=== PATIENT | male | born 1950 | race Caucasian/White ===

== ENCOUNTER 2024-05-10 19:21 | Inpatient (IN) | payer BC, MEDICARE, SELFPAY ==
[2024-05-10] VITALS (12 sets, daily range): BP systolic 119–162; BP diastolic 64–94; BMI 24.3; BMI 23.3
[2024-05-10 16:09] LABS: Glucose - Point of Care > 600 mg/dl (70-99)
[2024-05-10 16:37] LABS: Urine Albumin Negative (Neg - Trace); Urine Bilirubin Negative (Negative); Urine Character Clear (Clear); Urine Color Straw; Urine Glucose 3+ (Negative); Urine Ketone Negative (Negative); Urine Leukocyte Negative (Negative); Urine Nitrite Negative (Negative); Urine Occult Blood Trace (Negative); Urine Specific Gravity 1.005 (<1.030); Urine Urobilinogen Negative (Neg - 1+); Urine pH 6.5 (5.0-9.0)
[2024-05-10 16:37] LABS: % Basophils 0.3 % (0-2); % Eosinophils 0.6 % (0-6); % Immature Granulocytes 0.4 % (0-0.5); % Lymphocytes 22.8 % (20.5-51.1); % Monocytes 7.5 % (1.7-9.3); % Neutrophils 68.4 % (42.2-75.2); Absolute Lymphocytes 1.6 10^3/uL (1.2-3.4); Absolute Monocytes 0.5 10^3/uL (0.1-0.6); Absolute Neutrophils 4.9 10^3/uL (1.4-6.5); Hematocrit 33.4 % (39.0-52.0); Hemoglobin 11.9 g/dL (13.0-18.0); Mean Corp Hgb Conc. 35.6 g/dL (33.0-37.0); Mean Corpuscular Hgb 30.4 pg (27.0-31.0); Mean Corpuscular Volume 85.4 fL (80.0-94.0); Nucleated Red Blood Cells % 0 % (-); Platelet Count 177 10^3/uL (130-400); Red Blood Cell Count 3.91 10^6/uL (4.70-6.10); White Blood Cell Count 7.2 10^3/uL (4.8-10.8)
[2024-05-10 16:45] LABS: Urine Squamous Cell 0-2 /LPF (Few)
[2024-05-10 16:46] LABS: Urine Bacteria Few (Negative); Urine White Cell 0-2 /HPF (0-5)
[2024-05-10 16:51] LABS: ALT (SGPT) 51 U/L (0-50); AST (SGOT) 63 U/L (17-59); Albumin 4.4 g/dl (3.5-5.0); Alkaline Phosphatase 92 U/L (38-126); Blood Urea Nitrogen 19 mg/dl (9-20); Calcium 9.3 mg/dl (8.4-10.2); Carbon Dioxide 27 mmol/L (22-30); Chloride 93 mmol/L (98-107); Potassium 5.1 mmol/L (3.5-5.1); Sodium 132 mmol/L (135-145); Total Protein 7.3 g/dl (6.3-8.2); eGFR > 60.00
[2024-05-10 17:03] LABS: Glucose 725 mg/dl (70-99)
--- NOTE | 2024-05-10 17:23 | ED.GENMED ---
History of Present Illness
General
Chief Complaint: Abnormal Lab Value
Time Seen by Provider: 05/10/24 17:23
History of Present Illness
History of Present Illness:
HPI: Patient had outpatient blood work that showed a blood sugar in the 500s. He says this was ordered by Dr. Menjivar. He was told that he needs to follow with a primary care doctor but has not seen a primary care doctor in about 7 years. He is not
a diabetic but does have polyuria and polydipsia.
EXAM:
GENERAL: Well appearing in no distress
HEENT: Dry oral mucosa
CARDIOVASCULAR: No murmurs, normal heart rate, regular rhythm, No chest wall tenderness
PULMONARY: No respiratory distress, breath sounds are clear and equal
ABDOMEN: Soft with no peritoneal signs, no tenderness
NEUROLOGIC: Excellent strength all extremities, no coordination deficits
PSYCHIATRIC: Appropriate mental status, normal insight and judgement
EXTREMITIES: Nontender, no edema, moves all extremities equally
SKIN: No rash, no lesions
TIME OF INITIAL ENCOUNTER: 6 PM
NUMBER AND COMPLEXITY OF PROBLEMS ADDRESSED AT THE ENCOUNTER
� Chronic conditions affecting care: CAD, high blood pressure, hyperlipidemia, no prior history of diabetes
� Acute Exacerbation and/or Progression of Chronic Illness: This is an acute problem
� Differential Diagnosis includes: New onset diabetes, HHNK, DKA
AMOUNT AND/OR COMPLEXITY OF DATA TO BE REVIEWED AND ANALYZED
� I performed an independent evaluation of and my interpretation is:
EKG:
CT:
X-rays:
Laboratory Studies: Glucose 725, bicarb 27, white count 7.2, hemoglobin 11.9, A1c pending, no evidence of UTI but does have 3+ glucose and no ketones
Other:
� Review of other/old records: The patient was here in 2019 with a heel fracture
� Clinical information was obtained by an independent historian: I spoke to at bedside
� Prescriptions/Medications Considered but not given:
� Further testing considered but not performed:
RISK OF COMPLICATIONS AND/OR MORBIDITY OR MORTALITY OF PATIENT MANAGEMENT
� Social determinants of health affecting care: Lives at home
� Discussion with other providers:
� Escalation of care including admission/observation vs risk of discharge considered: Although patient prefers outpatient management, I cannot guarantee that he will be seen closely and I feel it will be most appropriate to keep
him here to more closely monitor the blood sugars and come up with a ongoing plan from a medication standpoint.
Past History
Past History
ED Past Medical History: None
ED Past Surgical History: None
Social History
Tobacco: Non-smoker
Alcohol: None
Drug: None
Personal:
Living: with family
Employment: Employed
Family History
Family History: CAD (in cousins, uncles, no 1st degree relative with CAD)
Phy Exam
Physical Exam
Physical Exam:
See HPI
Course
Orders/Labs/Results
Orders:
Orders
05/10/24 16:23
Complete Blood Count/With Diff Urgent
Comprehensive Metabolic Panel Urgent
Glycohemoglobin (HgbA1c) Urgent
Serum Osmolality Urgent
Comment: ADD ON
05/10/24 16:27
Urinalysis Reflex To Culture Urgent
Date Specimen was Collected: 05/10/24
Time Specimen was Collected: 16:09
Urine Microscopic Reflex Cult Urgent
05/10/24 17:23
0.9% Sodium Chloride 1000 ml [Nss] 1,000 ml IV BOLUS
05/10/24 18:06
Insulin Human Regular [Novolin R] 10 units IV NOW STA
05/10/24 18:12
Add On- LAB Urgent
Tests Added?: serum osm
05/10/24 18:35
Admit/Transfer Patient As Directed
Co-Sign Provider:
Level of Care: Inpatient admission
Assign to:: ICU
Physician / Group: bunny
Diagnosis: HHS
Reason for Hospitalization: HHS
Expected length of stay greater than two midnights?: Yes
ELOS- Estimated Length of Stay in days: 2
I certify the patient meets the requirements for IP care: Yes
PRN Pain Medication Management As Directed
May give lesser potent ordered pain med per pt: Yes
preference::
Protocol:: Medication orders for pain may be administered in a
manner that supports deferring to patient preference
when the pt is:
- Requesting an ordered lesser potent pain medication.
Least to most potent pain medications are defined
as: acetaminophen < NSAID < tramadol < opioids
(morphine, oxycodone, hydromorphone).
- Requesting a lesser dose of the same medication IF
ORDERED.
- Requesting a less intrusive route of administration
if both routes are prescribed by the provider (PO <
IV).
05/10/24 18:36
Code Status As Directed
Resuscitation Status: Full Code
05/10/24 18:45
Reg Insulin 100 Units/100 ml [Novolin R Insulin Infusion] 100 units in 100 ml IV ORDERED RATE
Abnormal Lab Results
05/10/24 05/10/24 05/10/24
16:07 16:23 16:27
RBC 3.91 L 10^6/uL
(4.70-6.10)
Hgb 11.9 L g/dL
(13.0-18.0)
Hct 33.4 L %
(39.0-52.0)
MPV 11.0 H fL
(7.4-10.4)
Sodium 132 L mmol/L
(135-145)
Chloride 93 L mmol/L
(98-107)
Glucose 725 H* mg/dl
(70-99)
AST 63 H U/L
(17-59)
ALT 51 H U/L
(0-50)
Ur Occult Blood Reflex Trace A
(Negative)
Urine RBC 3-6 A /HPF
(0-2)
Urine Bacteria (Reflex) Few A
(Negative)
Urine Glucose 3+ A
(Negative)
POC Glucose > 600 H* mg/dl
(70-99)
05/10/24 16:23
05/10/24 16:23
Vital Signs
Initial and Last Documented VS:
Initial Vital Signs
Temp Pulse Resp BP Pulse Ox
97.8 F 82 16 162/87 97
05/10/24 16:03 05/10/24 16:03 05/10/24 16:03 05/10/24 16:03 05/10/24 16:03
Last Documented Vital Signs
Temp Pulse Resp BP Pulse Ox
97.8 F 80 19 156/83 97
05/10/24 16:03 05/10/24 17:49 05/10/24 17:49 05/10/24 17:49 05/10/24 16:03
*Critical Care Note
Total Time (30-74mins, 75-104mins- exclusive of procedures): Not Applicable
ED Attending Note
-
Portions of this chart may have been created with voice recognition software.� Occasional wrong word or��sound alike� substitutions may have occurred due to the inherent limitations of voice recognition software.
Discharge Plan
Departure
Patient Disposition: Admit
Date of Disposition: 05/10/24
Time of Disposition: 18:16
Presentation/result/management discussed w/ accepting MD/DO: Hospitalist
Discharge Problem:
Severe hyperglycemia due to diabetes mellitus
Prescriptions:
No Action
acetaminophen [Tylenol Extra Strength] 500 MG tablet
500 mg PO Q4HPRN PRN (Reason: mild pain)
atorvastatin 80 MG tablet
80 mg PO QPM Qty: 30 3RF
nitroglycerin 0.4 MG tablet, sublingual
0.4 mg sublingual [id number] PRN (Reason: CHEST PAIN) Qty: 25 3RF
aspirin 81 MG tablet,chewable
81 mg PO DAILY 0RF
carvedilol 25 mg Tablet
25 mg PO BID
lisinopril 40 mg Tablet
40 mg PO DAILY
Interventions
Interventions:
*Risk Screen - Suicide Last Done: 05/10/24 16:03
*General Assessment Last Done: 05/10/24 18:32
*Neglect/Abuse Screening Last Done: 05/10/24 16:03
ED- Fall Risk Assessment Last Done: 05/10/24 18:32
*ED COVID-19 Vaccine History Last Done: 05/10/24 18:32
Discharge Date and Time
Print Language: BELIZEAN
[2024-05-10] MEDS: NSS 1000 IV (17:53)
--- NOTE | 2024-05-10 18:39 | HPS.HSE ---
Family Physician
-
Family Physician: Philomena Castro
Chief Complaint
-
polyuria, polydipsia
History of Present Illness
73-year-old male past medical history of CAD with stent, hyperlipidemia, presenting with outpatient blood work which showed blood sugar in the 500s. He has been having polyuria and polydipsia for the past several months. Denies abdominal pain,
nausea vomiting or diarrhea fevers or chills or any other complaints. Denies history of diabetes.
He has a cousin with diabetes.
Denies smoking or alcohol use.
Medical History
Past Medical History
Past Medical History: Reports Other (CAD with stent, hyperlipidemia)
Past Surgical History: Reports None
Social History
Tobacco: Non-smoker
Alcohol: None
Drug: None
Family History
Family History: Not pertinent
Allergies / Home Medications
Allergies reflects when Allergies were last updated in [facility].
Home Medications with original date entered in [facility]
Allergy/Medication List:
Allergies
Allergy/AdvReac Type Severity Reaction Status Date / Time
No Known Allergies Allergy Verified 05/10/24 16:05
Home Medications
acetaminophen 500 mg tablet (Tylenol Extra Strength) 500 mg PO Q4HPRN PRN mild pain 11/03/16
aspirin 81 mg chewable tablet 81 mg PO DAILY 11/07/16
atorvastatin 80 mg tablet 80 mg PO QPM ##30 11/07/16
nitroglycerin 0.4 mg sublingual tablet 0.4 mg sublingual [id number] PRN CHEST PAIN ##25 11/07/16
carvedilol 25 mg tablet 25 mg PO BID 05/10/24
lisinopril 40 mg tablet 40 mg PO DAILY 05/10/24
Review of Systems
-
History Source: Patient
A 12 point ROS was completed and negative except as noted: Yes
Constitutional: Reports No Symptoms
EENT: Reports No Symptoms
Respiratory: Reports No Symptoms
Cardiac: Reports No Symptoms
Abdomen/GI: Reports No Symptoms
: Reports No Symptoms
Musculoskeletal: Reports No Symptoms
Skin: Reports No Symptoms
Neurological: Reports No Symptoms
Endocrine: Reports No Symptoms
Hematologic/Lymphatic: Reports No Symptoms
Psych: Reports No Symptoms
Physical Exam
Vital Signs
Vital Signs
Temp Pulse Resp BP Pulse Ox
97.8 F 80 19 156/83 97
05/10/24 16:03 05/10/24 17:49 05/10/24 17:49 05/10/24 17:49 05/10/24 16:03
Physical Exam
General: Well Developed, Well Nourished and No Apparent Distress
HEENT: NormoCephalic, Moist mucous membranes and Atraumatic
Respiratory: Clear
Cardiac: S1/S2 and Regular Rhythm; No Murmur or Rub
GI: Soft, Non Tender, Non Distended and Normal Bowel Sounds; No Organomegaly
Rectal: Deferred by Provider
Musculoskeletal: No Clubbing, No Cyanosis and No Edema
Skin: No Rash
Neuro: Nonfocal/grossly intact
Laboratory Results
-
05/10/24 16:23
05/10/24 16:23
Laboratory Results
Total Bilirubin 1.0 mg/dl (0.2-1.3) 05/10/24 16:23
AST 63 U/L (17-59) H 05/10/24 16:23
ALT 51 U/L (0-50) H 05/10/24 16:23
Alkaline Phosphatase 92 U/L (38-126) 05/10/24 16:23
Data Reviewed
-
Lab Data: Labs Reviewed by me
Old Records: Reviewed
Impression/Plan
-
IMPRESSION:
PLAN:
# HHS
-Blood sugar 725
-Anion gap of 12
-Check A1c
-Accu-Cheks every hour
-BMP every 4 hours
-IV fluids with potassium at 150 cc/h
-N.p.o.
-Insulin drip
-Patient refusing to take subcutaneous insulin later
-UA pending
# Transaminitis
-Likely hepatic steatosis from diabetes
-Continue to monitor
CAD with history of stent
-Continue aspirin, Plavix, statin
-Continue Coreg
-Continue lisinopril
Hyperlipidemia
DNR
DVT prophylaxis�heparin
NPO
[2024-05-10 18:48] LABS: Osmolality Serum 312 mOsm/kg (275-300)
[2024-05-10 18:57] LABS: Glucose - Point of Care 552 mg/dl (70-99)
[2024-05-10] MEDS: NOVOLIN R 10 UNITS IV (19:00)
[2024-05-10] MEDS: NOVOLIN R INSULIN INFUSION 100 IV (19:01)
--- NOTE | 2024-05-10 20:30 | PTCARENOTE ---
pt received from ED to room 3360. Pt ambulated from stretcher to scale then to bed. Pt AAOx3. denies pain. NSR on telemetry heart rate in 60s. pulses palpable. no edema. pt on room air, sat 96%. lung sounds clear. active bowel sounds. voiding in
urinal without difficulty. insulin gtt infusing per protocol. new PIV placed in left AC. lab work drawn and sent. ekg obtained. admission questions completed. pt updated on plan of care. at bedside. see worklist for full nursing assessment and
interventions.
[2024-05-10 21:01] LABS: Glucose - Point of Care 330 mg/dl (70-99)
[2024-05-10 21:03] LABS: INR 1.03; PT 13.3 Sec (11.4-14.6)
[2024-05-10] MEDS: COREG 25 MG PO (21:07)
[2024-05-10] MEDS: NSS with KCL 20 MEQ 1000 IV (21:07)
[2024-05-10 21:08] LABS: Blood Urea Nitrogen 17 mg/dl (9-20); Calcium 9.1 mg/dl (8.4-10.2); Carbon Dioxide 24 mmol/L (22-30); Chloride 101 mmol/L (98-107); Estimated Creatinine Clearance 86 ml/min; Glucose 328 mg/dl (70-99); Magnesium 1.9 mg/dl (1.6-2.3); Phosphorus 2.9 mg/dl (2.5-4.5); Potassium 4.2 mmol/L (3.5-5.1); Sodium 137 mmol/L (135-145); eGFR > 60.00
[2024-05-10 22:16] LABS: Glucose - Point of Care 273 mg/dl (70-99)
[2024-05-10 23:13] LABS: Glucose - Point of Care 240 mg/dl (70-99)
[2024-05-11] VITALS (16 sets, daily range): BP systolic 98–143; BP diastolic 56–78; BMI 23.3
--- NOTE | 2024-05-11 | PTCARENOTE ---
pt resting in bed. q1 blood sugar checks, insulin gtt infusing per protocol. no changes in assessment noted.
[2024-05-11 00:18] LABS: Glucose - Point of Care 209 mg/dl (70-99)
[2024-05-11] MEDS: D5/0.45%NSS with KCL 20 MEQ 1000 IV ×2 (01:00→08:14)
[2024-05-11 01:07] LABS: Glucose - Point of Care 207 mg/dl (70-99)
[2024-05-11 01:18] LABS: Blood Urea Nitrogen 15 mg/dl (9-20); Calcium 8.8 mg/dl (8.4-10.2); Carbon Dioxide 24 mmol/L (22-30); Chloride 106 mmol/L (98-107); Estimated Creatinine Clearance 86 ml/min; Glucose 199 mg/dl (70-99); Potassium 3.8 mmol/L (3.5-5.1); Sodium 139 mmol/L (135-145); eGFR > 60.00
[2024-05-11 02:16] LABS: Glucose - Point of Care 209 mg/dl (70-99)
[2024-05-11 03:20] LABS: Glucose - Point of Care 248 mg/dl (70-99)
--- NOTE | 2024-05-11 04:00 | PTCARENOTE ---
pt slept intermittently throughout the night. no changes in assessment noted.
[2024-05-11 04:30] LABS: Glucose - Point of Care 228 mg/dl (70-99)
[2024-05-11 04:43] LABS: % Basophils 0.4 % (0-2); % Eosinophils 1.1 % (0-6); % Immature Granulocytes 0.2 % (0-0.5); % Lymphocytes 37.9 % (20.5-51.1); % Monocytes 9.4 % (1.7-9.3); Absolute Eosinophils 0.1 10^3/uL (0-0.7); Absolute Lymphocytes 2.1 10^3/uL (1.2-3.4); Absolute Monocytes 0.5 10^3/uL (0.1-0.6); Absolute Neutrophils 2.9 10^3/uL (1.4-6.5); Hematocrit 28.4 % (39.0-52.0); Hemoglobin 10.2 g/dL (13.0-18.0); Mean Corp Hgb Conc. 35.9 g/dL (33.0-37.0); Mean Corpuscular Hgb 31.3 pg (27.0-31.0); Mean Corpuscular Volume 87.1 fL (80.0-94.0); Nucleated Red Blood Cells % 0 % (-); Platelet Count 130 10^3/uL (130-400); Red Blood Cell Count 3.26 10^6/uL (4.70-6.10); Red Cell Dist. Width 12.9 % (11.5-14.5); White Blood Cell Count 5.7 10^3/uL (4.8-10.8)
[2024-05-11 04:58] LABS: Blood Urea Nitrogen 14 mg/dl (9-20); Calcium 8.6 mg/dl (8.4-10.2); Carbon Dioxide 25 mmol/L (22-30); Chloride 106 mmol/L (98-107); Estimated Creatinine Clearance 86 ml/min; Glucose 215 mg/dl (70-99); Magnesium 1.9 mg/dl (1.6-2.3); Phosphorus 3.2 mg/dl (2.5-4.5); Sodium 138 mmol/L (135-145); eGFR > 60.00
[2024-05-11 05:32] LABS: Glucose - Point of Care 196 mg/dl (70-99)
[2024-05-11 06:28] LABS: Glucose - Point of Care 238 mg/dl (70-99)
[2024-05-11 07:11] LABS: Glucose - Point of Care 255 mg/dl (70-99)
[2024-05-11 08:05] LABS: Glycohemoglobin (HgbA1c) 14.9 % (4.0-5.6)
[2024-05-11 08:12] LABS: Glucose - Point of Care 242 mg/dl (70-99)
[2024-05-11] MEDS: LOW STRENGTH ASPIRIN 81 MG PO (08:14)
[2024-05-11] MEDS: COREG 25 MG PO ×2 (08:14→20:22)
[2024-05-11] MEDS: ZESTRIL 40 MG PO (08:14)
[2024-05-11 08:36] LABS: Blood Urea Nitrogen 12 mg/dl (9-20); Calcium 8.6 mg/dl (8.4-10.2); Carbon Dioxide 24 mmol/L (22-30); Chloride 105 mmol/L (98-107); Estimated Creatinine Clearance 97 ml/min; Glucose 236 mg/dl (70-99); Potassium 4.3 mmol/L (3.5-5.1); Sodium 138 mmol/L (135-145); eGFR > 60.00
--- NOTE | 2024-05-11 08:55 | W.PN.HOSP.TC ---
Today's Communication/Plan
-
DRYING ROOM SUPERVISOR DM consult
dietary consult
transition off insulin drip
Assessment / Plan
Assessment / Plan
pt is a 73 year old male
new onset type 2 DM presenting as HHS (blood sugar 725 on admission--no AGAP)--HGB A1C 14.9--on insulin drip with sugars in 200s--consult DM DRYING ROOM SUPERVISOR for transition--will likely NEED insulin but pt currently refusion--needs dietary consult too
Transaminitis--Likely hepatic steatosis from diabetes--Continue to monitor
CAD with history of stent--Continue aspirin, Plavix, statin--Continue Coreg--Continue lisinopril
Hyperlipidemia--cont lipitor
code status --DNR
DVT prophylaxis�heparin
once off insulin drip can transfer out of ICU
Anticipated Discharge: 24 - 48 hours
Subjective/Interval History
-
Date of Service: May 11, 2024
no c/o this AM
been having polydipsia, polyuria for awhile--no FM of DM
Objective Data
-
Labs:
Laboratory Results
05/10/24 05/11/24 05/11/24
20:45 00:56 04:18
WBC 5.7
Hgb 10.2 L
Hct 28.4 L
Plt Count 130 D
PT 13.3
INR 1.03
APTT 28.0
Sodium 137 139 138
Potassium 4.2 3.8 4.0
Chloride 101 106 106
Carbon Dioxide
BUN 17 15 14
Creatinine 0.9 0.9 0.9
Glucose 328 H 199 H 215 H
Calcium 9.1 8.8 8.6
05/11/24 05/11/24 05/11/24
08:00 12:00 16:00
WBC
Hgb
Hct
Plt Count
PT
INR
APTT
Sodium 138 Pending Pending
Potassium 4.3 Pending Pending
Chloride 105 Pending Pending
Carbon Dioxide 24 Pending Pending
BUN 12 Pending Pending
Creatinine 0.8 Pending Pending
Glucose 236 H Pending Pending
Calcium 8.6 Pending Pending
05/11/24
20:00
WBC
Hgb
Hct
Plt Count
PT
INR
APTT
Sodium Pending
Potassium Pending
Chloride Pending
Carbon Dioxide Pending
BUN Pending
Creatinine Pending
Glucose Pending
Calcium Pending
Vital Signs:
max temp for 24 hours
05/11/24
00:00
Temp 98.3 F
Vital Signs
Temp Pulse Resp BP Pulse Ox
98.2 F 67 15 142/78 96
05/11/24 08:00 05/11/24 08:14 05/11/24 07:00 05/11/24 08:14 05/11/24 07:00
I&O
05/10/24 05/11/24 05/12/24
06:59 06:59 06:59
Intake Total 1532 / 1686 154 / 154
Output Total 500 / 500 200 / 200
Balance 1032 / 1186 -46 / -46
Review of Systems
-
All other systems: Reviewed and negative
Physical Exam
-
General: Well Developed, Well Nourished and No Apparent Distress
HEENT: Normocephalic and Atraumatic
Respiratory: Clear to Auscultation; Negative Wheezes or Rhonchi
Cardiac: Regular Rhythm and S1/S2; Negative Murmur
GI: Soft, Nontender, Nondistended and Normal Bowel Sounds
Musculoskeletal: No Clubbing, No Cyanosis and No Edema
Neuro: Awake and Alert
Psych: Calm
--- NOTE | 2024-05-11 08:59 | CM ---
Patient seen at bedside with physician. Patient lives with in one story home. Patient independent of ADL's and IADL's. Patient states that he has no DME at home. Patient PCP is Dr. Smith and he uses the [facility] in [place]. Patient expressed
concerns about diet moving forward with new Diagnosis of DM. CM will continue to follow for discharge planning needs.
Plan; home with no needs; follow up with PCP
[2024-05-11 09:13] LABS: Glucose - Point of Care 258 mg/dl (70-99)
--- NOTE | 2024-05-11 09:40 | PTCARENOTE ---
Assumed care of patient this morning. Insulin gtt maintained with Q1H blood sugars. 0800 BMP sent this morning and reviewed by . Toy Assembler consulted. Patient is aaox3 but flat, does not offer much conversation when prompted. Pt
denies any pain. Has no complaints at this time. Assessment, care and VS as charted.
[2024-05-11 10:11] LABS: Glucose - Point of Care 263 mg/dl (70-99)
[2024-05-11] MEDS: LANTUS 0.18 UNITS SC (11:06)
[2024-05-11] MEDS: GLUCOPHAGE 500 MG PO ×2 (11:06→18:10)
[2024-05-11 11:17] LABS: Glucose - Point of Care 255 mg/dl (70-99)
--- NOTE | 2024-05-11 11:35 | CON.INTV ---
Consultation
Consultation Request
Date/Time Consultation Requested: 05/11/2024
Date/Time Consultation Performed: 05/11/2024
Requesting Provider: Dr. Evangelista
Performing Provider: Dr. Bam Kim
Reason for Consultation: Anion gap metabolic acidosis/hyperglycemia crisis
Medical History
-
History of Present Illness:
73-year-old man with past medical history significant for coronary artery disease with stents placement in the past, hyperlipidemia who presented from the outpatient setting with blood sugars in the 500s. He reports polyuria, polydipsia, weight
loss for several months. New diagnosis of diabetes.
Denies nausea, vomiting, abdominal pain, shortness of breath, headache or blurry vision. Denies any chest pain.
Denies signs or symptoms suggestive of infection.
He is reluctant to use insulin
Past Medical History
Past Medical History: Other (See assessment and plan)
Social History
Tobacco: Non-smoker
Alcohol: None
Drug: None
Family History
Family History: Reviewed & Not Pertinent
Allergies / Home Medications
Allergies
Allergy/AdvReac Type Severity Reaction Status Date / Time
No Known Allergies Allergy Verified 05/10/24 16:05
Home Medications
�Medication �Instructions �Recorded �Confirmed �Last Taken �Type
acetaminophen 500 mg tablet 500 mg PO Q4HPRN PRN mild pain 11/03/16 05/10/24 11/03/16 11:30 History
(Tylenol Extra Strength)
aspirin 81 mg chewable tablet 81 mg PO DAILY 11/07/16 05/10/24 Unknown Rx
atorvastatin 80 mg tablet 80 mg PO QPM ##30 11/07/16 05/10/24 Unknown Rx
nitroglycerin 0.4 mg sublingual 0.4 mg sublingual [id number] PRN 11/07/16 05/10/24 Unknown Rx
tablet CHEST PAIN ##25
carvedilol 25 mg tablet 25 mg PO BID Heart 05/10/24 05/10/24 Unknown History
Disease/Condition
lisinopril 40 mg tablet 40 mg PO DAILY Heart 05/10/24 05/10/24 Unknown History
Disease/Condition
Review of Systems
-
History Source: Patient
All other systems: Negative unless noted
Vitals / Labs / Diagnostic Testing
Vital Signs
Temp Pulse Resp BP Pulse Ox
98.2 F 66 13 133/69 96
05/11/24 08:00 05/11/24 11:00 05/11/24 11:00 05/11/24 11:00 05/11/24 11:00
Lab Data
05/11/24 04:18
05/11/24 20:00
Laboratory Results
05/10/24
20:45
PT 13.3
INR 1.03
APTT 28.0
Diagnostic Testing:
Physical Exam
-
HEENT: Normocephalic
Cardiovascular: S1/S2
Respiratory: Clear and Non-Labored Respirations
GI: Soft, Non Distended and Normal Bowel Sounds
Neurology: Awake, Alert, AO x 3 and No Motor Deficits
Skin: Warm
General: Comfortable
Assessment
-
73-year-old man admitted with a blood sugar of the 700s, weight loss, polyuria, polydipsia and new onset diabetes. Hyperosmolar syndrome due to hyperglycemia. In the critical care unit with insulin drip.
Hyperglycemic hyperosmolar nonketotic syndrome.
Blood sugar 725 in the emergency room
New onset diabetes mellitus-hemoglobin A1c 14.9
Transaminitis-likely hepatic steatosis
Anemia
Conditions present prior admission: Coronary artery disease
Post stents
Hyperlipidemia
Hypertension
Chest x-ray 05/11/2024: Reviewed showed clear lungs.
Urinalysis-unremarkable
Assessment and plan:
Critically ill on admission, on insulin drip. Hourly Accu-Cheks. Target blood sugars 140-180
Patient denies any particular symptoms at the moment.
He states that he was told in the past that he has some high sugars.
Blood sugar control improved
Status post IV fluid resuscitation, continue to follow renal function and electrolytes.
Encourage oral intake
Diabetes nurse practitioner saw the patient, discussed. To be transition to subcu insulin.
Dietitian consultation to instruct on diabetic diet
-
Coronary artery disease: Chest pain-free.
Denies shortness of breath.
Restart outpatient medications
-
DVT prophylaxis: Patient refused subcu heparin, start SCDs. Early mobilization
He is reluctant to use injectable medication
-
Critical care statement: A total of 31 minutes of critical care time was provided for this patient today. This includes management of unstable vital signs, evaluation of the patient at bedside, reviewing the patient's pertinent medical records
including radiographs, microbiology, laboratory evaluations and discussion with primary team, critical care nursing, and respiratory therapy.
--- NOTE | 2024-05-11 11:46 | PTCARENOTE ---
Lantus given, see MAR. Insulin gtt and IVF will be removed approx 1300. Pt also advised to have lunch at this time.
[2024-05-11 12:11] LABS: Glucose - Point of Care 269 mg/dl (70-99)
[2024-05-11 13:09] LABS: Glucose - Point of Care 252 mg/dl (70-99)
[2024-05-11] MEDS: NOVOLOG FLEXPEN 5 UNITS SC ×2 (13:16→18:10)
[2024-05-11] MEDS: NOVOLOG FLEXPEN-LOW RESISTANCE 3 UNITS SC (13:16)
--- NOTE | 2024-05-11 13:31 | W.PN.UPDATE ---
Update Note
Progress Note Update
Off insulin drip
Tolerating diet
On subcu insulin
Will transfer to [facility]
Critical care team will sign off.
Please call pulmonary if any respiratory issues arise
--- NOTE | 2024-05-11 13:42 | PN.DE.MGMTRT ---
Insulin Management
- -
05/11/2024 Diabetes Management Consult
Patient admitted 05/10 abnormal lab value, BS 725 found to be in DKA. H CAD, stent, HLD. Patient has not been to the doctor in quite some time. A1C 14.9%, cr .8, eGFR > 60.
Patient is awake alert and oriented. Discussed with patient importance of glucose control and need for insulin. He is reluctant but agreeable. Will start 18 units lantus daily with 5 units novolog AC and low corrective with metformin 500 mg BID.
Provided meter will return to instruct
Did instruct patient on steps for taking insulin. Nursing to reinforce and have patient do all injections with nursing supervision.
Will follow
Diabetes History
- -
Type of Diabetes: 2 requiring insulin
Pre-Admission Diabetes Regimen
05/10/24 05/10/24 05/11/24
16:23 20:45 00:56
Creatinine 1.1 0.9 0.9
05/11/24 05/11/24 05/11/24
04:18 08:00 12:00
Creatinine 0.9 0.8 Cancelled
05/11/24 05/11/24
16:00 20:00
Creatinine Cancelled Cancelled
Lab Results
Hemoglobin A1c 14.9 % (4.0-5.6) H 05/10/24 16:23
Insulin Pump Settings
IP Diabetes Regimen
05/10/24 05/10/24 05/10/24
16:07 16:23 18:55
Glucose 725 H*
POC Glucose > 600 H* 552 H*
05/10/24 05/10/24 05/10/24
20:45 20:50 22:05
Glucose 328 H
POC Glucose 330 H 273 H
05/10/24 05/11/24 05/11/24
23:02 00:05 00:55
Glucose
POC Glucose 240 H 209 H 207 H
05/11/24 05/11/24 05/11/24
00:56 02:05 03:08
Glucose 199 H
POC Glucose 209 H 248 H
05/11/24 05/11/24 05/11/24
04:18 05:20 06:17
Glucose 215 H
POC Glucose 228 H 196 H 238 H
05/11/24 05/11/24 05/11/24
07:00 07:59 08:00
Glucose 236 H
POC Glucose 255 H 242 H
05/11/24 05/11/24 05/11/24
09:02 09:59 11:05
Glucose
POC Glucose 258 H 263 H 255 H
05/11/24 05/11/24 05/11/24
12:00 12:58 16:00
Glucose Cancelled Cancelled
POC Glucose 269 H 252 H
05/11/24
20:00
Glucose Cancelled
POC Glucose
Patient Education
--- NOTE | 2024-05-11 16:49 | PTCARENOTE ---
Transferred from ICU. AOx3. VSS. Assessment unchanged from previous RN. Discussed plan of care. Encouraged to make needs known.
[2024-05-11 17:32] LABS: Glucose - Point of Care 159 mg/dl (70-99)
[2024-05-11] MEDS: NOVOLOG FLEXPEN-LOW RESISTANCE 1 UNITS SC (18:10)
[2024-05-11] MEDS: LIPITOR 80 MG PO (18:10)
[2024-05-11 19:59] LABS: Glucose - Point of Care 199 mg/dl (70-99)
[2024-05-11 21:26] LABS: Glucose - Point of Care 177 mg/dl (70-99)
[2024-05-12 00:02] VITALS: BP 114/58
[2024-05-12 02:29] LABS: Glucose - Point of Care 205 mg/dl (70-99)
[2024-05-12 06:00] VITALS: BMI 23.2
[2024-05-12 07:30] VITALS: BP 119/62
[2024-05-12 07:56] LABS: Hematocrit 32.1 % (39.0-52.0); Hemoglobin 11.4 g/dL (13.0-18.0); Mean Corp Hgb Conc. 35.5 g/dL (33.0-37.0); Mean Corpuscular Hgb 30.2 pg (27.0-31.0); Mean Corpuscular Volume 84.9 fL (80.0-94.0); Mean Platelet Volume 10.8 fL (7.4-10.4); Platelet Count 150 10^3/uL (130-400); Red Blood Cell Count 3.78 10^6/uL (4.70-6.10); Red Cell Dist. Width 13.2 % (11.5-14.5); White Blood Cell Count 5.7 10^3/uL (4.8-10.8)
[2024-05-12 08:25] LABS: Glucose - Point of Care 257 mg/dl (70-99)
--- NOTE | 2024-05-12 08:46 | PN.DE.MGMTRT ---
Insulin Management
- -
05/12/2024 Diabetes Management Consult Follow up
Patient admitted 05/10 abnormal lab value, BS 725 found to be in DKA. H CAD, stent, HLD. Patient has not been to the doctor in quite some time. A1C 14.9%, cr .8, eGFR > 60.
Patient is awake alert and oriented, resting in bed, at bedside. Discussed with patient importance of glucose control and need for insulin. He was reluctant but agreeable. 05/11 18 units lantus daily with 5 units novolog AC and low corrective
with metformin 500 mg BID started 05/11. Glucose range 159 to 205.
05/12 Fasting glucose 257. Will increase AM lantus to 20 units and Novolog to 8 units AC with low corrective and continue metformin 500 mg BID.
Provided meter and instructed
Did instruct patient on steps for taking insulin. Nursing to reinforce and have patient do all injections with nursing supervision. Home pen needles provided
Will follow
Diabetes History
- -
Type of Diabetes: 2 requiring insulin
Pre-Admission Diabetes Regimen
05/11/24 05/11/24 05/11/24
12:00 16:00 20:00
Creatinine Cancelled Cancelled Cancelled
Lab Results
Hemoglobin A1c 14.9 % (4.0-5.6) H 05/10/24 16:23
Insulin Pump Settings
IP Diabetes Regimen
05/11/24 05/11/24 05/11/24
09:02 09:59 11:05
Glucose
POC Glucose 258 H 263 H 255 H
05/11/24 05/11/24 05/11/24
12:00 12:58 16:00
Glucose Cancelled Cancelled
POC Glucose 269 H 252 H
05/11/24 05/11/24 05/11/24
17:31 19:57 20:00
Glucose Cancelled
POC Glucose 159 H 199 H
05/11/24 05/12/2405/12/24
21:25 02:27 08:24
Glucose
POC Glucose 177 H 205 H 257 H
Patient Education
[2024-05-12] MEDS: COREG 25 MG PO ×2 (08:53→20:45)
[2024-05-12] MEDS: ZESTRIL 40 MG PO (08:54)
[2024-05-12] MEDS: LOW STRENGTH ASPIRIN 81 MG PO (08:54)
[2024-05-12] MEDS: GLUCOPHAGE 500 MG PO ×2 (08:58→17:31)
[2024-05-12] MEDS: NOVOLOG FLEXPEN SC ×2 (09:04→13:49)
[2024-05-12] MEDS: LANTUS SC (09:04)
[2024-05-12 09:46] LABS: ALT (SGPT) 46 U/L (0-50); AST (SGOT) 58 U/L (17-59); Albumin 3.7 g/dl (3.5-5.0); Alkaline Phosphatase 69 U/L (38-126); Blood Urea Nitrogen 10 mg/dl (9-20); Calcium 9.2 mg/dl (8.4-10.2); Carbon Dioxide 18 mmol/L (22-30); Chloride 106 mmol/L (98-107); Estimated Creatinine Clearance 97 ml/min; Glucose 247 mg/dl (70-99); Magnesium 1.9 mg/dl (1.6-2.3); Potassium 4.4 mmol/L (3.5-5.1); Sodium 138 mmol/L (135-145); Total Protein 6.6 g/dl (6.3-8.2); eGFR > 60.00
[2024-05-12] MEDS: LANTUS 0.2 UNITS SC (10:31)
[2024-05-12] MEDS: NOVOLOG FLEXPEN 6 UNITS SC (10:32)
[2024-05-12] MEDS: NOVOLOG FLEXPEN-LOW RESISTANCE 3 UNITS SC (10:33)
[2024-05-12 12:22] LABS: Glucose - Point of Care 323 mg/dl (70-99)
--- NOTE | 2024-05-12 13:25 | CM ---
Patient seen at bedside with physician and resident. Patient also present. Patient for discharge home tomorrow with [facility] follow up. referral sent via all scripts. Patient accepting of referral. IMM completed and signed form placed on chart.
CM will continue to follow for discharge planning needs.
Plan; home with [facility] to follow up.
[2024-05-12] MEDS: NOVOLOG FLEXPEN 8 UNITS SC ×2 (13:42→17:29)
[2024-05-12] MEDS: NOVOLOG FLEXPEN-LOW RESISTANCE 4 UNITS SC (13:43)
[2024-05-12 15:45] VITALS: BP 91/60
[2024-05-12 16:45] VITALS: BP 119/68
[2024-05-12 16:48] LABS: Glucose - Point of Care 199 mg/dl (70-99)
[2024-05-12] MEDS: NOVOLOG FLEXPEN-LOW RESISTANCE 1 UNITS SC (17:29)
[2024-05-12] MEDS: LIPITOR 80 MG PO (17:31)
--- NOTE | 2024-05-12 18:36 | W.PN.HOSP.TC ---
Today's Communication/Plan
-
learning insulin pens
hopeful d/c in AM
Assessment / Plan
Assessment / Plan
pt is a 73 year old male
new onset type 2 DM presenting as HHS (blood sugar 725 on admission--no AGAP)--HGB A1C 14.9--off insulin drip with sugars in 200s--apprec DM WEALTH MANAGEMENT CONSULTANT for transition, now on lantus and novolog with meals--apprec dietary consult
Transaminitis--Likely hepatic steatosis from diabetes--Continue to monitor
CAD with history of stent--Continue aspirin, Plavix, statin--Continue Coreg--Continue lisinopril
Hyperlipidemia--cont lipitor
code status --DNR
DVT prophylaxis�heparin
hopeful d/c tomorrow
Anticipated Discharge: Within 24 hours
Subjective/Interval History
-
Date of Service: May 12, 2024
pt learning how to use his insulin pens
Objective Data
-
Labs:
Laboratory Results
05/12/24
07:36
WBC 5.7
Hgb 11.4 L
Hct 32.1 L
Plt Count 150
Sodium 138
Potassium 4.4
Chloride 106
Carbon Dioxide 18 L
BUN 10
Creatinine 0.8
Glucose 247 H
Calcium 9.2
Total Bilirubin 1.0
AST 58
ALT 46
Alkaline Phosphatase 69
Vital Signs:
max temp for 24 hours
05/12/24
15:45
Temp 98.4 F
Vital Signs
Temp Pulse Resp BP Pulse Ox
98.4 F 79 16 119/68 97
05/12/24 15:45 05/12/24 16:45 05/12/24 15:45 05/12/24 16:45 05/12/24 15:45
I&O
05/11/24 05/12/24 05/13/24
06:59 06:59 06:59
Intake Total 1532 / 1686 1897 / 1897
Output Total 500 / 500 1000 / 1000
Balance 1032 / 1186 897 / 897
Review of Systems
-
All other systems: Reviewed and negative
Physical Exam
-
General: Well Developed, Well Nourished and No Apparent Distress
HEENT: Normocephalic and Atraumatic
Respiratory: Clear to Auscultation; Negative Wheezes or Rhonchi
Cardiac: Regular Rhythm and S1/S2; Negative Murmur
GI: Soft, Nontender, Nondistended and Normal Bowel Sounds
Musculoskeletal: No Clubbing, No Cyanosis and No Edema
Neuro: Awake and Alert
Psych: Calm
[2024-05-12 22:29] LABS: Glucose - Point of Care 197 mg/dl (70-99)
[2024-05-12 23:40] VITALS: BP 121/68
--- NOTE | 2024-05-13 06:16 | W.PN.UPDATE ---
Update Note
Progress Note Update
Reported by the nursing staff that the patient is DNR and his code status ordered as full code. Spoke to the patient and he verbalized the meaning of DNR and confirmed that his code status is DNR. Code changed per the patient request.
[2024-05-13 07:31] LABS: Glucose - Point of Care 207 mg/dl (70-99)
[2024-05-13 07:44] VITALS: BP 140/67
[2024-05-13] MEDS: ZESTRIL 40 MG PO (07:51)
[2024-05-13] MEDS: GLUCOPHAGE 500 MG PO ×2 (07:51→17:03)
[2024-05-13] MEDS: COREG 25 MG PO (07:52)
[2024-05-13] MEDS: LOW STRENGTH ASPIRIN 81 MG PO (07:52)
--- NOTE | 2024-05-13 07:52 | PN.DE.MGMTRT ---
Insulin Management
- -
05/13/2024 Diabetes Management Consult Follow up
Patient admitted 05/10 abnormal lab value, BS 725 found to be in DKA. H CAD, stent, HLD. Patient has not been to the doctor in quite some time. A1C 14.9%, cr .8, eGFR > 60.
Patient is awake alert and oriented, resting in bed, at bedside. Discussed with patient importance of glucose control and need for insulin. He was reluctant but agreeable. 05/11 18 units lantus daily with 5 units novolog AC and low corrective
with metformin 500 mg BID started 05/11. Glucose range 159 to 205.
05/12 AM lantus increased to 20 units and Novolog to 8 units AC with low corrective and continue metformin 500 mg BID. Glucose improved to 199 pre dinner and 197 @ HS.
05/13 Fasting glucose 207, will increase AM lantus to 22 units and AC novolog to 10 units.
Provided meter and instructed good return demonstration. Able to state times to test and importance of reporting results to doctor.
Did instruct patient on steps for taking insulin. Nursing to reinforce and have patient do all injections with nursing supervision. Patient states he is comfortable self injecting. Home pen needles provided
Discussed with CM preferred insulins are Fiasp and Basaglar
Will follow
Diabetes History
- -
Type of Diabetes: 2 requiring insulin
Pre-Admission Diabetes Regimen
05/12/24
07:36
Creatinine 0.8
Lab Results
Hemoglobin A1c 14.9 % (4.0-5.6) H 05/10/24 16:23
Insulin Pump Settings
IP Diabetes Regimen
05/12/24 05/12/24 05/12/24
07:36 08:24 12:21
Glucose 247 H
POC Glucose 257 H 323 H
05/12/24 05/12/24 05/13/24
16:47 22:27 07:29
Glucose
POC Glucose 199 H 197 H 207 H
Patient Education
[2024-05-13] MEDS: LANTUS 0.2 UNITS SC (07:54)
[2024-05-13] MEDS: NOVOLOG FLEXPEN SC ×2 (07:55→08:04)
[2024-05-13] MEDS: NOVOLOG FLEXPEN-LOW RESISTANCE 2 UNITS SC ×2 (07:56→13:43)
[2024-05-13] MEDS: NOVOLOG FLEXPEN 10 UNITS SC ×3 (08:02→17:05)
[2024-05-13] MEDS: LANTUS 0.02 UNITS SC (08:42)
[2024-05-13 12:05] LABS: Glucose - Point of Care 235 mg/dl (70-99)
--- NOTE | 2024-05-13 13:35 | CM ---
Addendum entered by Valery Hernandez 05/13/24 14:47:
no copays for either medication. patient updated and patient to be followed by Anjali. CM will continue to follow for discharge.
Original Note:
CM called to insurance to determine cost of medications, with id number [phone] . CM unable to obtain information called to [facility] and had to leave message. patient for discharge today. CM will continue to try to obtain information about costs. CM
will continue to follow for discharge planning needs.
Plan; home with family follow up with PCP
--- NOTE | 2024-05-13 14:12 | PTCARENOTE ---
patient denies complaints, tolerating diet, no BM, independent in room, vss. He is able to administer insulin but needs reminder to hold insulin pen in skin for at least 10 seconds for insulin to be fully dispensed and absorbed. will continue to
monitor.
[2024-05-13 15:22] VITALS: BP 124/69
[2024-05-13 16:19] LABS: Glucose - Point of Care 251 mg/dl (70-99)
[2024-05-13] MEDS: LIPITOR 80 MG PO (17:03)
[2024-05-13] MEDS: NOVOLOG FLEXPEN-LOW RESISTANCE 3 UNITS SC (17:04)
--- NOTE | 2024-05-13 17:17 | W.PN.HOSP.TC ---
Today's Communication/Plan
-
d/c
Assessment / Plan
Assessment / Plan
pt is a 73 year old male
new onset type 2 DM presenting as HHS (blood sugar 725 on admission--no AGAP)--HGB A1C 14.9--off insulin drip with sugars in 200s--apprec DM MILITARY ADMINISTRATIVE TECHNICIAN for transition, now on lantus and novolog with meals--apprec dietary consult
Transaminitis--Likely hepatic steatosis from diabetes--Continue to monitor
CAD with history of stent--Continue aspirin, Plavix, statin--Continue Coreg--Continue lisinopril
Hyperlipidemia--cont lipitor
code status --DNR
DVT prophylaxis�heparin
d/c
Anticipated Discharge: Today
Subjective/Interval History
-
Date of Service: May 13, 2024
pt ready for d/c
Objective Data
-
Vital Signs:
max temp for 24 hours
05/12/24
15:45
Temp 98.4 F
Vital Signs
Temp Pulse Resp BP Pulse Ox
98.1 F 76 17 140/67 97
05/13/24 07:44 05/13/24 07:44 05/13/24 07:44 05/13/24 07:44 05/13/24 07:44
I&O
05/12/24 05/13/24 05/14/24
06:59 06:59 06:59
Intake Total 1897 / 1897 1580 / 1580 360 / 360
Output Total 1000 / 1000
Balance 897 / 897 1580 / 1580 360 / 360
Review of Systems
-
All other systems: Reviewed and negative
Physical Exam
-
General: Well Developed, Well Nourished and No Apparent Distress
HEENT: Normocephalic and Atraumatic
Respiratory: Clear to Auscultation; Negative Wheezes or Rhonchi
Cardiac: Regular Rhythm and S1/S2; Negative Murmur
GI: Soft, Nontender, Nondistended and Normal Bowel Sounds
Musculoskeletal: No Clubbing, No Cyanosis and No Edema
Neuro: Awake and Alert
--- NOTE | 2024-05-13 18:41 | PTCARENOTE ---
patient sent with Novolog Pen and Lantus insulin approved by pharmacy to be able to go home since his pharmacy won't have insulin until tomorrow at 3pm.
--- NOTE | 2024-05-14 06:22 | W.DCSUMMARY ---
Discharge Summary
Discharge Data
Date of Admission: 05/10/24
Date of Discharge: 05/13/24
-
Pending Results: No
Hospital Course
Primary care physician : Philomena Castro
Principal Discharge diagnosis : New onset type 2 diabetes mellitus presenting as hyperosmolar hyperglycemic state
Chronic Discharge diagnosis : Coronary artery disease with history of stent, hyperlipidemia
Hospital Course : Patient was a 73-year-old male with a history of coronary artery disease with stent placement, hyperlipidemia who presented with outpatient blood work which showed blood sugar in the 500s. For several months he stated he was
having polyuria and polydipsia. He denied abdominal pain, nausea, vomiting, diarrhea, fevers, or chills. He denies any personal history of diabetes. Patient was found to have a blood sugar 725 on evaluation in the emergency department. He was
admitted.
Problem #1: New onset type 2 diabetes mellitus presenting as hyperosmolar hyperglycemic state. Patient was initially admitted to the intensive care unit and started on an insulin drip. He did not present in diabetic ketoacidosis as his bicarbonate
was normal on his serum BMP laboratory studies. Hemoglobin A1c was checked and it was found to be 14.9. Once sugars came down into the 200 range, diabetic nurse practitioners were consulted for assistance in transitioning the patient to
subcutaneous insulin. He was also started on oral metformin. Lantus and NovoLog were adjusted and his insurance coverage was looked at. Basaglar and Fiasp were chosen as the insulins of choice at discharge. Patient had difficulty obtaining these
insulin products from his [facility]. We subsequently called around to 3 other [facility]'s who also did not have the medication and all needed to be ordered. Eventually insulin was obtained and he was able to be discharged safely. Dietary counseling was
provided to the patient.
Problem #2: All other medical issues. These include coronary artery disease with history of stent and hyperlipidemia. These medical issues were stable during his hospitalization. Medications were continued as able.
Patient is stable for discharge home at this time. If there are any questions regarding this dictation or his hospital stay, please not hesitate to call. Our office number is [phone].
Time for discharge 2 hours.
Discharge Plan
-
Patient Disposition: Home with Home Care
Discharge Diagnosis/Procedures: New onset type 2 diabetes mellitus presenting as HHS (hyperosmolar hyperglycemic state), coronary artery disease with history of stent, hyperlipidemia
Condition: Good
Diet: Diabetic, Carb Controlled
Activity: As tolerated
Driving Restrictions: As prior to admission
Bathing Restrictions: None
Other Services: VN
Referrals:
Philomena Castro MD [Family Provider] - in less than 1 week
Prescriptions:
New
(DME) Contour Next Test Strips Strip
Qty: 200 0RF
Rx Instructions:
Test before each meal and HS
As Directed
insulin glargine [Basaglar KwikPen U-100 Insulin] 100 unit/mL (3 mL) Insulin Pen
22 unit SC DAILY Qty: 5 0RF
Rx Instructions:
Take in AM
(DME) pen needle, diabetic [BD Ultra-Fine Lily Pen Needle] 32 gauge x 5/32' Needle
Qty: 200 0RF
Rx Instructions:
As Directed
(DME) lancets [Color Lancets] 21 gauge Misc
Qty: 200 0RF
Rx Instructions:
As Directed
Fiasp FlexTouch U-100 Insulin 100 unit/mL (3 mL) Insulin Pen
10 unit SC TID Qty: 5 0RF
Rx Instructions:
take 10 minutes before each meal
metformin 500 mg Tablet
500 mg PO BID@0800,1700 Qty: 60 0RF
Continued
acetaminophen [Tylenol Extra Strength] 500 MG tablet
500 mg PO Q4HPRN PRN (Reason: mild pain)
atorvastatin 80 MG tablet
80 mg PO QPM Qty: 30 3RF
nitroglycerin 0.4 MG tablet, sublingual
0.4 mg sublingual [id number] PRN (Reason: CHEST PAIN) Qty: 25 3RF
aspirin 81 MG tablet,chewable
81 mg PO DAILY 0RF
carvedilol 25 mg Tablet
25 mg PO BID
lisinopril 40 mg Tablet
40 mg PO DAILY
Discharge Orders:
Discharge Patient (As Directed); Ordered 05/13/24
Ordered By: Nora Millard
Discharge Date and Time
Discharge Date/Time: 05/13/24 18:41
Print Language: OCCITAN
== END 2024-05-13 18:41 | disposition home health service (06) | DRG 639 ==
LOC: 3 WEST ACU 19:21
PROVIDERS: Nurse Practitioner Family; Student in an Organized Health Care Education/Training Program; ADMITTING PHYSICIAN Hospitalist; ATTENDING PHYSICIAN Internal Medicine; EMERGENCY PHYSICIAN Emergency Medicine; FAMILY PHYSICIAN Family Medicine; OTHER PHYSICIAN Internal Medicine Critical Care Medicine
DX: E11.00 Type 2 diabetes mellitus with hyperosmolarity without nonketotic hyperglycemic-hyperosmolar coma (NKHHC) (principal); I25.10 Atherosclerotic heart disease of native coronary artery without angina pectoris; E78.5 Hyperlipidemia, unspecified; K76.0 Fatty (change of) liver, not elsewhere classified; D64.9 Anemia, unspecified; I10 Essential (primary) hypertension; Z66 Do not resuscitate; Z79.82 Long term (current) use of aspirin; Z95.5 Presence of coronary angioplasty implant and graft
CPT/HCPCS: 36415; 71045; 80048; 80053; 80061; 81003; 81015; 82962; 83036; 83735; 83930; 84100; 85025; 85027; 85610; 85730; 93005; 96360; 99285

== ENCOUNTER → 2024-06-22 12:44 | Outpatient (REF) | payer BC, SELFPAY | LOC: RCS 12:44 | PROVIDERS: ATTENDING PHYSICIAN Internal Medicine Cardiovascular Disease; FAMILY PHYSICIAN Family Medicine | DX: I25.10 Atherosclerotic heart disease of native coronary artery without angina pectoris (principal); I10 Essential (primary) hypertension; I34.0 Nonrheumatic mitral (valve) insufficiency | CPT/HCPCS: 93306; Q9950 ==

== ENCOUNTER → 2024-09-10 07:31 | Outpatient (REF) | payer BC, SELFPAY ==
[2024-09-10 08:37] LABS: ALT (SGPT) 27 U/L (0-50); AST (SGOT) 30 U/L (17-59); Alkaline Phosphatase 58 U/L (38-126); Blood Urea Nitrogen 31 mg/dl (9-20); Calcium 9.8 mg/dl (8.4-10.2); Carbon Dioxide 25 mmol/L (22-30); Chloride 103 mmol/L (98-107); Glucose 107 mg/dl (70-99); HDL Cholesterol 39 mg/dl; LDL Cholesterol, Calculated 70 mg/dl; Potassium 4.6 mmol/L (3.5-5.1); Sodium 142 mmol/L (135-145); Total Cholesterol 128 mg/dl (50-199); Total Protein 8.4 g/dl (6.3-8.2); Triglyceride 95 mg/dl (10-149); Very Low Density Lipoprotein 19 mg/dl (0-30); eGFR > 60.00
[2024-09-10 08:46] LABS: Glycohemoglobin (HgbA1c) 5.2 % (4.0-5.6)
[2024-09-10 11:16] LABS: Microalbumin, Random Urine 1.2 mg/dl (0.6-1.7); Microalbumin/creatinine Ratio 14.6 mg/g
== END ==
LOC: REG 07:31
PROVIDERS: ATTENDING PHYSICIAN Physician Assistant
DX: E11.65 Type 2 diabetes mellitus with hyperglycemia (principal); Z79.4 Long term (current) use of insulin
CPT/HCPCS: 36415; 80053; 80061; 82043; 82570; 83036

== ENCOUNTER → 2024-12-22 07:09 | Outpatient (REF) | payer BC, SELFPAY ==
[2024-12-22 08:13] LABS: ALT (SGPT) 35 U/L (0-50); AST (SGOT) 35 U/L (17-59); Alkaline Phosphatase 53 U/L (38-126); Blood Urea Nitrogen 27 mg/dl (9-20); Calcium 10.1 mg/dl (8.4-10.2); Carbon Dioxide 27 mmol/L (22-30); Chloride 109 mmol/L (98-107); Glucose 101 mg/dl (70-99); HDL Cholesterol 39 mg/dl; LDL Cholesterol, Calculated 74 mg/dl; Sodium 145 mmol/L (135-145); Total Cholesterol 132 mg/dl (50-199); Total Protein 8.5 g/dl (6.3-8.2); Triglyceride 99 mg/dl (10-149); Very Low Density Lipoprotein 19 mg/dl (0-30); eGFR > 60.00
[2024-12-22 08:52] LABS: Glycohemoglobin (HgbA1c) 5.2 % (4.0-5.6)
== END ==
LOC: REG 07:09
PROVIDERS: ATTENDING PHYSICIAN Physician Assistant
DX: E11.65 Type 2 diabetes mellitus with hyperglycemia (principal); R77.9 Abnormality of plasma protein, unspecified; E78.2 Mixed hyperlipidemia
CPT/HCPCS: 36415; 80053; 80061; 83036

== ENCOUNTER → 2025-03-25 07:33 | Outpatient (REF) | payer BC, SELFPAY ==
[2025-03-25 09:18] LABS: Glycohemoglobin (HgbA1c) 5.1 % (4.0-5.6)
[2025-03-25 09:54] LABS: ALT (SGPT) 25 U/L (0-50); AST (SGOT) 26 U/L (17-59); Albumin 5.0 g/dl (3.5-5.0); Alkaline Phosphatase 66 U/L (38-126); Blood Urea Nitrogen 25 mg/dl (9-20); Calcium 10.0 mg/dl (8.4-10.2); Carbon Dioxide 27 mmol/L (22-30); Chloride 107 mmol/L (98-107); Glucose 100 mg/dl (70-99); HDL Cholesterol 38 mg/dl; LDL Cholesterol, Calculated 66 mg/dl; Potassium 5.1 mmol/L (3.5-5.1); Sodium 142 mmol/L (135-145); Total Protein 8.2 g/dl (6.3-8.2); Very Low Density Lipoprotein 16 mg/dl (0-30); eGFR > 60.00
== END ==
LOC: REG 07:33
PROVIDERS: ATTENDING PHYSICIAN Physician Assistant
DX: E11.9 Type 2 diabetes mellitus without complications (principal); E78.2 Mixed hyperlipidemia; R77.9 Abnormality of plasma protein, unspecified
CPT/HCPCS: 36415; 80053; 80061; 83036; 84155; 84165

== ENCOUNTER → 2025-07-01 07:08 | Outpatient (REF) | payer BC, SELFPAY ==
[2025-07-01 08:35] LABS: HDL Cholesterol 38 mg/dl; LDL Cholesterol, Calculated 56 mg/dl; Very Low Density Lipoprotein 17 mg/dl (0-30)
[2025-07-01 10:39] LABS: Glycohemoglobin (HgbA1c) 5.3 % (4.0-5.9)
== END ==
LOC: REG 07:08
PROVIDERS: ATTENDING PHYSICIAN Nurse Practitioner Family; FAMILY PHYSICIAN Physician Assistant
DX: E11.65 Type 2 diabetes mellitus with hyperglycemia (principal); E78.2 Mixed hyperlipidemia
CPT/HCPCS: 36415; 80061; 83036